=== PATIENT | female | born 1945 | race Caucasian/White ===

== ENCOUNTER → 2020-04-21 | Outpatient (CLI) | payer MEDICARE ==
[~2020-04-21] MED LIST: ASPI81TA45 PO; BUSP10TA PO; CETI10TA76 PO; CHOL10003 PO; DIPH25CA61 PO; FURO20TA3 PO; GABA300C PO; LOSA100T14 PO; LOVA20TA2 PO; METH500T7 PO; OMEP40CA42 PO; ONDA4TAB7 PO; POTA20TA6 PO; SUCR1TAB33 PO
== END | disposition home or self-care (01) ==
LOC: STAR 11:44
PROVIDERS: ATTEND Anesthesiology
DX: Z01.812 Encounter for preprocedural laboratory examination (principal); Z20.828 Contact with and (suspected) exposure to other viral communicable diseases
CPT/HCPCS: 36415; 87635